=== PATIENT | male | born 1995 | race Caucasian/White ===

== ENCOUNTER 2019-04-26 02:17 | Emergency (ER) | payer OTHER ==
--- NOTE | 2019-04-26 02:31 | ED Physician Documentation ---
History of Present Illness - Stated complaint Stated Complaint: R HAND LAC - Chief complaint Chief Complaint: Laceration - History obtained from History obtained from: Patient (the patient is a 23 y/o AD M USN who fell out of his bed and reports multiple lacerations to his right hand. reports he is right hand dominant. denies being anticoagulated. denies any weakness.) Review of Systems Constitutional: reports: Reviewed and negative Eyes: reports: Reviewed and negative Ears: reports: Reviewed and negative Nose: reports: Reviewed and negative Throat: reports: Reviewed and negative Cardiac: reports: Reviewed and negative Respiratory: reports: Reviewed and negative GI: reports: Reviewed and negative : reports: Reviewed and negative Skin: reports: Laceration (s) Musculoskeletal: reports: Reviewed and negative Neurologic: reports: Reviewed and negative Psychiatric: reports: Reviewed and negative Endocrine: reports: Reviewed and negative Immunocompromised: reports: Reviewed and negative PD PAST MEDICAL HISTORY - Present Medications Home Medications: Ambulatory Orders Medication Instructions Recorded Confirmed No Known Home Medications 04/26/19 04/26/19 - Allergies Allergies/Adverse Reactions: Allergies Allergy/AdvReac Type Severity Reaction Status Date / Time No Known Drug Allergies Allergy Verified 04/26/19 02:36 PD ED PE NORMAL - Vitals Vital signs reviewed: Yes - General General: Alert and oriented X 3, No acute distress - HEENT HEENT: PERRL - Neck Neck: Supple, no meningeal sign - Cardiac Cardiac: RRR, No murmur - Respiratory Respiratory: Clear bilaterally - Abdomen Abdomen: Normal bowel sounds, Soft, Non tender, Non distended - Derm Derm: Other (1 cm laceration to dorsal aspect of fifth digit of right hand between MCP and PIP joint, 1 cm laceration to 4th digit dorsally between PIP and DIP joint, no evidence of tendon involvement is able to flex and extend on active and passive ROM of all digits at MCP, PIP and DIP joint. cap refill < 2 sec, SILT. R/M/U Motor and sensory exam intact, radial pulses 2+ and symettric. superficial skin tears over digits 2 & 3 proximal to the MCP joints. abrasion over dorsal aspect of thumb proximal to the IP joint. ) - Extremities Extremities: Other (1 cm laceration to dorsal aspect of fifth digit of right hand between MCP and PIP joint, 1 cm laceration to 4th digit dorsally between PIP and DIP joint, no evidence of tendon involvement is able to flex and extend on active and passive ROM of all digits at MCP, PIP and DIP joint. cap refill < 2 sec, SILT. R/M/U Motor and sensory exam intact, radial pulses 2+ and symettric. superficial skin tears over digits 2 & 3 proximal to the MCP joints. abrasion over dorsal aspect of thumb proximal to the IP joint. ) - Neuro Neuro: Alert and oriented X 3 - Psych Psych: Normal mood, Normal affect Results - Vitals Vitals: Vital Signs - 24 hr 04/26/19 02:20 Temperature 36.8 C Heart Rate 86 Respiratory 16 Rate Blood Pressure 133/80 H O2 Saturation 99 Oxygen O2 Source Room air Procedures - Laceration (location) Hand Wound type: Other (2 separate wounds in the right hand required laceration repair wound #1 is on the right little finger. The wound is 1.5 cm. The finger was anesthetized using a digital block in the webspace as well as the medial aspect of the distal MCP joint 1.5 cc of lidocaine without epinephrine was used in both spaces to achieve adequate anesthesia. Patient tolerated this well. The wound was thoroughly irrigated with copious saline no foreign bodies were identified the wound was closed using 5 simple interrupted sutures using 5-0 Ethilon. With good wound edge approximation. Patient tolerated the procedure well 1 #2 is on the fourth finger of the right hand the wound was anesthetized with 1% lidocaine without epinephrine locally. The wound was irrigated with copious saline no foreign bodies were identified wound edges were modified with mild tissue revision the wound was 1 cm and was closed using 5 simple interrupted sutures using 5-0 Ethilon patient tolerated the procedure well he is neurovascular intact post laceration. Bacitracin was applied and a simple dressing was applied.) Departure - Departure Disposition: 01 Home, Self Care Clinical Impression: Laceration Laceration of hand Qualifiers: Encounter type: initial encounter Foreign body presence: unspecified Laterality: right Qualified Code(s): S61.411A - Laceration without foreign body of right hand, initial encounter Condition: Good Instructions: ED Laceration Hand Follow-Up: YOUR,DOCTOR [Other] - Tomorrow Comments: KEEP WOUND CLEAN AND PROTECTED, F/U W YOUR DOCTOR FOR SUTURE REMOVAL IN 7-10 DAYS
[2019-04-26] MEDS ORDERED: LIDOCAINE 1% 2 ML VIAL SUBQ STA ×2 (02:36→02:46)
[2019-04-26] MEDS ORDERED: TETANUS/DIPHTHERIA/PERTUSSIS 0.5 ML SYRINGE IM ONE (02:37)
--- NOTE | 2019-04-26 03:17 | XRAY Report ---
Reason: injuries Procedure Date: 04/26/2019 Accession Number: [id number] / [id number] Procedure: XR - Hand 3 View RT CPT Code: Final Report FULL RESULT: EXAM: RIGHT HAND RADIOGRAPHY EXAM DATE: 04/26/2019 02:56 AM. CLINICAL HISTORY: Injuries. COMPARISON: None. TECHNIQUE: 3 views. FINDINGS: Bones: Normal. No fractures or bone lesions. Joints: Normal. No subluxations. Soft Tissues: Soft tissue swelling. No radiopaque foreign body seen in the soft tissues. IMPRESSION: Soft tissue swelling, but no evidence of fracture or radiopaque foreign body. [facility]
[2019-04-26] MEDS ORDERED: BACITRACIN ZINC OINT 1 PACKET TOP STA (04:07)
[2019-04-26] MEDS: BACITRACIN ZINC OINT 1 PACKET TOP STA (04:19)
[2019-04-26 04:41] VITALS: BP 130/65
== END 2019-04-26 04:42 | disposition home or self-care (01) ==
LOC: ED 02:17
DX: S61.216A Laceration without foreign body of right little finger without damage to nail, initial encounter (principal); S61.214A Laceration without foreign body of right ring finger without damage to nail, initial encounter; S60.311A Abrasion of right thumb, initial encounter; W06.XXXA Fall from bed, initial encounter; Y92.003 Bedroom of unspecified non-institutional (private) residence as the place of occurrence of the external cause
CPT/HCPCS: 12001; 73130; 99282; 99283; A9270